=== PATIENT | male | born 2000 | race Caucasian/White ===

== ENCOUNTER 2020-09-16 15:04 | Inpatient (IN) | payer OTHER ==
[~2020-09-16] VITALS: Ht 188 cm; Wt 90.9 kg
[2020-09-16 15:43] LABS: HEMOGLOBIN 15.7 g/dl (13.5-17.5); MEAN CORPUSCULAR HEMOGLOBIN 31.7 pg (27.0-33.0); MEAN CORPUSCULAR HGB CONC 34.9 g/dl (32.0-36.5); MEAN CORPUSCULAR VOLUME 90.7 fl (80.0-96.0); PLATELET COUNT, AUTOMATED 229 10^3/uL (150-450); RED BLOOD COUNT 4.96 10^6/uL (4.30-6.10); WHITE BLOOD COUNT 7.8 10^3/uL (4.0-10.0)
[2020-09-16 16:17] LABS: ALBUMIN 4.5 GM/DL (3.2-5.2); ALT/SGPT 34 U/L (12-78); BILIRUBIN,DIRECT 0.1 MG/DL (0.0-0.2); BILIRUBIN,TOTAL 0.6 MG/DL (0.2-1.0); BLOOD UREA NITROGEN 12 MG/DL (7-18); CALCIUM LEVEL 9.7 MG/DL (8.5-10.1); CARBON DIOXIDE LEVEL 33 MEQ/L (21-32); CHLORIDE LEVEL 103 MEQ/L (98-107); CREATININE FOR GFR 1.03 MG/DL (0.70-1.30); GLUCOSE, FASTING 84 MG/DL (70-100); POTASSIUM SERUM 4.1 MEQ/L (3.5-5.1); SALICYLATE LEVEL < 1.7 MG/DL (5.0-30.0); SODIUM LEVEL 138 MEQ/L (136-145); THYROID STIMULATING HORMONE 0.989 uIU/ML (0.463-3.98); TOTAL PROTEIN 8.1 GM/DL (6.4-8.2)
[2020-09-16 16:18] LABS: ACETAMINOPHEN LEVEL < 2.0 UG/ML (10.0-30.0); ETHYL ALCOHOL (ETHANOL) < 0.003 % (0.000-0.010)
[2020-09-16 16:26] LABS: AMPHETAMINES LEVEL URINE NEGATIVE (NEGATIVE); BARBITURATES URINE NEGATIVE (NEGATIVE); BENZODIAZEPINES URINE NEGATIVE (NEGATIVE); CANNABINOIDS URINE NEGATIVE (NEGATIVE); COCAINE METABOLITE URINE NEGATIVE (NEGATIVE); METHADONE URINE NEGATIVE (NEGATIVE); OPIATES URINE NEGATIVE (NEGATIVE); PHENCYCLIDINE URINE NEGATIVE (NEGATIVE)
[2020-09-16] MEDS ORDERED: MOM 30ML SUSPENSION UDC PO PRN ×2 (19:00→20:00)
[2020-09-16] MEDS ORDERED: LORazepam 1 MG TAB PO PRN ×2 (19:00→20:00)
[2020-09-16] MEDS ORDERED: traZODone 50 MG TAB PO PRN ×2 (19:00→20:00)
[2020-09-16] MEDS ORDERED: MAALOX 30 ML SUSP *UDC PO PRN ×2 (19:00→20:00)
[2020-09-16] MEDS ORDERED: ACETAMINOPHEN TAB 650MG DOSE (2X325MG) PO PRN ×2 (19:00→20:00)
--- OUTSIDE RECORDS SUMMARY | 2020-09-16 19:35 | CCD ---
Author Author [facility] Organization [facility] Address Unknown Phone Unavailable Support Name Relationship Address Phone [facility] Next Of Kin [address] [place] [address] Unavailable Re-disclosure Warning The records that you are about to access may contain information from federally-assisted alcohol or drug abuse programs. If such information is present, then the following federally mandated warning applies: This information has been disclosed to you from records protected by federal confidentiality rules (42 CFR part 2). The federal rules prohibit you from making any further disclosure of this information unless further disclosure is expressly permitted by the written consent of the person to whom it pertains or as otherwise permitted by 42 CFR part 2. A general authorization for the release of medical or other information is NOT sufficient for this purpose. The Federal rules restrict any use of the information to criminally investigate or prosecute any alcohol or drug abuse patient.The records that you are about to access may contain highly sensitive health information, the redisclosure of which is protected by Article 27-F of the [facility] Public Health law. If you continue you may have access to information: Regarding HIV / AIDS; Provided by facilities licensed or operated by the [facility] Office of Mental Health; or Provided by the [facility] Office for People With Developmental Disabilities. If such information is present, then the following [facility] mandated warning applies: This information has been disclosed to you from confidential records which are protected by state law. State law prohibits you from making any further disclosure of this information without the specific written consent of the person to whom it pertains, or as otherwise permitted by law. Any unauthorized further disclosure in violation of state law may result in a fine or custodial sentence or both. A general authorization for the release of medical or other information is NOT sufficient authorization for further disc losure. Insurance Providers Payer name Policy type / Coverage type Policy ID Covered republican ID Covered republican's relationship to rivera Policy Rivera Plan Information [facility] [employer] [id number]
[2020-09-16] MEDS ORDERED: OLANZapine ORAL DISINTEGRATING TAB 5MG PO PRN (20:00)
[2020-09-16 20:42] LABS: RSV AMPLIFICATION NEGATIVE (NEGATIVE)
[2020-09-17 01:31] VITALS: BP 130/74
--- NOTE | 2020-09-17 12:35 | HPEPDOC ---
[facility] Medical History & Physical Date of Admission Sep 17, 2020 Date of Service: Sep 17, 2020 History and Physical CHIEF COMPLAINT: suicidal ideation HISTORY OF PRESENT ILLNESS: 19-year-old male with past medical history of depression and anxiety, brought to [facility] ER for suicidal ideation after he changed concerning text messages with a friend. He is active duty . Has several stressors including his relationship with his long-term girlfriend who recently admitted to infidelity. He misses his family and was not able to go home as his sleep was canceled. Hospitalist was consulted for medical comanagement. Patient denies chest pain, seizures of breath, nausea, vomiting, diarrhea. Thought to be: Positive on arrival to the ED. Asymptomatic. Saturating 98% on room air. He does not have any cough, subjective fevers or chills. PAST MEDICAL HISTORY: Depression SOCIAL HISTORY: Patient denies smoking Patient denies etoh use Patient denies illicit drug use FAMILY HISTORY: Reviewed with patient. No pertinent history ALLERGIES: Please see below. REVIEW OF SYSTEMS: 10 point review of systems completed, necessary findings listed in HPI HOME MEDICATIONS: Please see below. PHYSICAL EXAMINATION: VITAL SIGNS: please see below General: NAD, comfortable HEENT: PERRLA, EOMI, sclerae clear Neck: supple, normal ROM, no JVD Respiratory: lungs CTAB, no wheeze, no rales, no crackles CVS: RRR, normal S1, S2, no murmurs Abdo: soft, no masses, no hepatosplenomegaly, BS+, no rebound tenderness Extremities: no edema, pulses 2+ MSK: no joint deformities, normal ROM Neuro: no focal neuro deficits, moving all 4 extremities, CN2-12 intact. Strength 5/5 in all 4 extremities. No nystagmus. Psych: calm, cooperative, AAO x 3 LABORATORY DATA: See below. MICROBIOLOGY: Please see below. ASSESSMENT: 19-year-old male with a past medical history of depression, admitted to [facility] for suicidal ideation. 5. Difficulty 19 positive in the ER. Remains asymptomatic without cough, fevers, shortness of breath. Saturating 98% on room air. PLAN: Suicidal ideation/depression: Per psychiatry Covid-19 infection: asymptomatic. O2 saturation 98% on RA. VSS. No cough, sob, fevers. Monitor clinically. Supportive measures. Comvibent prn. Incentive spirometer. Thank you for involving me in the care of this patient. Please reconsult as needed. Vital Signs Vital Signs Date Time Temp Pulse Resp B/P (MAP) Pulse Ox O2 Delivery O2 Flow Rate FiO2 09/17/20 01:31 99.0 57 18 130/74 (92) Room Air 09/16/20 15:26 100 Laboratory Data Labs 24H Laboratory Tests 2 09/16/20 15:25: Nucleated Red Blood Cells % (auto) 0.0, Anion Gap 2L, Calcium Level 9.7, Total Bilirubin 0.6, Direct Bilirubin 0.1, Aspartate Amino Transf (AST/SGOT) 15, Alanine Aminotransferase (ALT/SGPT) 34, Alkaline Phosphatase 104, Total Protein 8.1, Albumin 4.5, Albumin/Globulin Ratio 1.3, Thyroid Stimulating Hormone (TSH) 0.989, Salicylates Level < 1.7L, Urine Opiates Screen NEGATIVE, Urine Methadone Screen NEGATIVE, Acetaminophen Level < 2.0L, Urine Barbiturates Screen NEGATIVE, Urine Phencyclidine Screen NEGATIVE, Urine Amphetamines Screen NEGATIVE, Urine Benzodiazepines Screen NEGATIVE, Urine Cocaine Metabolite Screen NEGATIVE, Urine Cannabinoids Screen NEGATIVE, Ethyl Alcohol Level < 0.003 09/16/20 19:39: Coronavirus (COVID-19)(PCR) POSITIVEA, Influenza Type A (RT-PCR) NEGATIVE, Influenza Type B (RT-PCR) NEGATIVE, Respiratory Syncytial Virus (PCR) NEGATIVE CBC/BMP Laboratory Tests 09/16/20 15:25 Home Medications Scheduled PRN Ipratropium/Albuterol Sulfate (Combivent Respimat 20-100 Mcg) 4 Gm Mist.inhal, 1 PUFF INH Q4HP PRN for SHORTNESS OF BREATH Trazodone HCl (Trazodone HCl) 50 Mg Tablet, 50 MG PO QHSP PRN for INSOMNIA Allergies Coded Allergies: No Known Allergies (Unverified , 09/16/20) A-FIB/CHADSVASC A-FIB History Current/History of A-Fib/PAF?: No Current PO Anticoag Therapy: No KALEE MUKHERJEE MD Sep 17, 2020 12:35
[2020-09-17] MEDS ORDERED: COMBIVENT RESPIMAT 100-20MCG INHALER 4GM INH PRN (12:45)
[2020-09-17 18:20] VITALS: BP 120/80
--- NOTE | 2020-09-17 18:26 | MHHPEPDOC ---
General Date Of Admission: Sep 16, 2020 Legal Status: 9.39 Chief Complaint "My dear friend misconstrued what I was saying... I'm not suicidal".--------The patient was seen via ZOOM because of the coronavirus pandemic History of Present Illness HISTORY OF THE PRESENT ILLNESS: Patient is a 19 -year-old , male, who, as per ED records: "Reason for Referral Pt was brought to [facility] for a MHE after pts g/f called police due to pt making suicidal statements via text message. Chief Complaint Pt reports that he joined the [employer] and just graduated basic in March. Pt. reports that [employer] is his first duty station and he arrived on April 04. 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 Pt reports that he is originally from [place]. Pt reports that is where his family is from. Pt reports that he grew up with his mom and step father and his two step siblings. Pt did not decipher gender. Pt reports that he only met his biological father a couple times in his lifetime and speaks of his biological f ather having 5 other children. Pt reports that he is very depressed because, his girlfriend of 3 years recently told him of her infidelity. Pt reports that her justification was it is very difficult to be alone. Pt also reports that he was looking forward to going home however his leave was cancelled. Pt reports that this made him very sad and in turn fueled his text earlier today. Pt reports that he was texting a friend from [place]. Pt reports that his friend was concerned about his mental health therefore contacted the police which prompted his visit to [facility]. Pt will not disclose what he wrote to his friend. Pt states "I never told anyone I wanted to kill myself, just that I couldn't do this anymore". Pt reports that "this" refers to not seeing my family and being away from them and my girlfriend cheating on him not SI. Pt denies SI/HI/AH/VH. Pt reports good appetite and poor sleep. Pt does not appear to be psychotic. Pt. does appear to be minimizing to avoid hospitalization." Psychiatric Review of Systems Depression (2 or more weeks): appetite changes (he says he is always eating) [place] (4 or more days of): talkativity, pressured, distractibility (very few times) Psychosis: denies PTSD: denies Anxiety: situational anxiety, other (he hates needles) Anxiety/ 6 months or more of: restlessness, keyed up Past Psychiatric History The patient was seen via ZOOM because of the coronavirus pandemic Previous Psychiatric Diagnosis: Denies Previous Psychiatric Admissions: Denies Suicide Attempts: Denies Psychiatric Follow-up: Denies Psychiatric medications: Denies. Past Medical History Medical Problems Denies Head Injury: No Seizures: No Hospitalizations: Yes Surgeries: Yes (appendectomy at age 11) Family Medical/Psychiatric HX Psychiatric Disorders: No Addiction: No Suicide Attemps/Completions: No Addiction History alcohol (occasionally, for celebrations) Social History The patient was seen via ZOOM because of the coronavirus pandemic Childhood: Grew up with mom and stepdad ( he considers him his father). he remembrs his bio father but he was not part of his life. Has step siblings, he is the oldest one. e gets along well with them. Abuse/Trauma: Denies Current Living Situation: [facility], [place] Education: finished Employment: [employer] Social Support: his family, friends at . Legal: Denies Marital: single, no children. Mental Status Examination General Appearance: well groomed, appears stated age, hospital scubs/clothing Build: average Demeanor: average Eye Contact: average Activity: average Behavior: cooperative Speech: clear, spontaneous, reg/rate,rhythm,volume Mood: euthymic Affect: full, appropriate Thought Process: logical/linear, intact Thought Content (Delusions): none reported, denies SI, HI, AVH Thought Content (Other): none reported Thought Content (Aggressive): none reported Perception (Hallucinations): none reported Perception (Other): none reported Cognition (Impairment of): none reported Cognition(Intelligence Est.): average Oriented: Awake, Alert, Oriented times three Insight: fair Judgment: Fair Psychosis: Denies Diagnoses 1. Adjustment disorder with mixed anxiety and depressed mood 2. specific phobia ( needles) A-FIB/CHADSVASC A-FIB History Current/History of A-Fib/PAF?: No Current PO Anticoag Therapy: No Age/Risk Factor Scoring CHADSVASC: CHADSVASC Response (Comments) Value Age Risk Factor Age < 65 years old 0 Gender Risk Factor Male 0 Hx of CHF Yes 1 Hx of HTN Yes 1 Hx of Stroke/TIA/or VTE Yes 2 Hx of Diabetes Yes 1 Hx of Vascular Disease Yes 1 Total 6 Treatment Treatment ordered: NONE Reason Anticoagulant not given: Not indicated/[id number] Assessment The patient was seen via ZOOM due to the coronavirus pandemic The patient is pleasant and cooperative. He is adamant about not being suicidal, he says his friend misinterpreted his statement when he said he couldn't keep going "like this". He says he has felt lonely because he is from [place] and he has had relationship problems because his GF of 3 years has been cheating on him. He says he is not suicidal and it feels as if he is minimizing his symptoms but his mood and affect didn't seem to be depressed at the time of the evaluation. I think he has been trying to adjust to his new job ( [employer]) and to living in a different place, without his family and now being betrayed by his GF. He says he has never been to therapy, has never taken any psychiatric medications and has never attempted suicide. Denies family psychiatric problems. Based on his responses, I won't start him on any medication at this time. Initial Treatment Plan 1. Patient was admitted on a [9.39] status. 2. Complete history was obtained. 3. With patients permission, family will be contacted and database will be expanded. 4. Patients medication regimen will be reviewed and changed accordingly. 5. Patient will be provided with protected environment. 6. Patient will be treated with individual, group, and milieu therapies. 7. Patient will receive supportive psych-education. 8. Discharge planning will commence immediately. 9. Outpatient follow-up treatment will be strongly recommended. 10. The initial treatment plan will focus initially on: * Depression. * Anxiety * Risk for suicide. ESTIMATED LENGTH OF STAY: 3-5 DAYS. TIME SPENT COUNSELING AND COORDINATING INITIAL CARE: 45 minutes. Vital Signs Vital Signs Date Time Temp Pulse Resp B/P (MAP) Pulse Ox O2 Delivery O2 Flow Rate FiO2 09/17/20 01:31 99.0 57 18 130/74 (92) Room Air 09/16/20 15:26 100 Laboratory Data 24H Labs Laboratory Tests 2 09/16/20 15:25: Nucleated Red Blood Cells % (auto) 0.0, Anion Gap 2L, Calcium Level 9.7, Total Bilirubin 0.6, Direct Bilirubin 0.1, Aspartate Amino Transf (AST/SGOT) 15, Alanine Aminotransferase (ALT/SGPT) 34, Alkaline Phosphatase 104, Total Protein 8.1, Albumin 4.5, Albumin/Globulin Ratio 1.3, Thyroid Stimulating Hormone (TSH) 0.989, Salicylates Level < 1.7L, Urine Opiates Screen NEGATIVE, Urine Methadone Screen NEGATIVE, Acetaminophen Level < 2.0L, Urine Barbiturates Screen NEGATIVE, Urine Phencyclidine Screen NEGATIVE, Urine Amphetamines Screen NEGATIVE, Urine Benzodiazepines Screen NEGATIVE, Urine Cocaine Metabolite Screen NEGATIVE, Urine Cannabinoids Screen NEGATIVE, Ethyl Alcohol Level < 0.003 09/16/20 19:39: Coronavirus (COVID-19)(PCR) POSITIVEA, Influenza Type A (RT-PCR) NEGATIVE, Influenza Type B (RT-PCR) NEGATIVE, Respiratory Syncytial Virus (PCR) NEGATIVE CBC/BMP Laboratory Tests 09/16/20 15:25 Medications No Active Prescriptions or Reported Meds Allergies Coded Allergies: No Known Allergies (Unverified , 09/16/20) KRISTEL WHELAN MD Sep 17, 2020 13:16
--- NOTE | 2020-09-18 12:58 | MHHPE ---
DATE OF EVALUATION: 09/18/2020 SUBJECTIVE: The patient tells me that he is doing fine. He continues to say that he did not have suicidal intent when he had voiced thoughts to his ex-girlfriend that she felt that he was suicidal. He has no complaints. MENTAL STATUS EXAMINATION: The patient is alert and oriented times three. Eye contact is fair. Psychomotor activity is normal. There is no formal thought disorder noted. He says his mood is okay. Affect is constricted but appropriate to mood. He is not psychotic. He is denying suicidal or homicidal ideations. Concentration is fair. Insight and judgment are fair. DIAGNOSIS: Adjustment disorder with mixed anxiety and depression. TREATMENT PLAN: At this point we will continue to monitor the patient for continued elevation and stabilization of his mood and continued resolution of suicidal ideation. SUL[place]NA
[2020-09-18 16:39] VITALS: BP 134/77
[2020-09-19 06:25] VITALS: BP 110/61
[2020-09-19 16:14] VITALS: BP 131/70
[2020-09-20 06:42] VITALS: BP 130/77
[2020-09-20] MEDS ORDERED: COMBAER6 INH (12:46)
[2020-09-20] MEDS ORDERED: TRAZ-252 PO (12:46)
--- NOTE | 2020-09-20 13:15 | MHIPN ---
[facility] INPATIENT PROGRESS NOTE DATE: 09/19/20 HISTORY OF PRESENT ILLNESS: The patient today continues to tell me that he is doing good. He says he slept well and he has no complaints. He continues to deny that he had any suicidal intent when apparently he had text some words to his girlfriend that he says were not really meant to be suicidal ideation. MENTAL STATUS EXAM: Patient is alert and oriented times 3. Eye contact is fairly good. He is verbally spontaneous. There is no formal thought disorder. His says his mood is good. Affect constricted, but appropriate to mood. He is not psychotic, suicidal or homicidal. Concentration and memory is good. Insight and judgment is fair. DIAGNOSIS: Adjustment disorder with mixed anxiety and depression. TREATMENT PLAN: We will continue to monitor the patient for continued resolution of suicidal ideations and continue elevation and stabilization of his mood.
--- NOTE | 2020-09-21 22:28 | MHDSPDOC ---
[facility] Discharge Summary Discharge Summary DATE OF ADMISSION: Sep 16, 2020 at 18:59 DATE OF DISCHARGE: 09/21/2020 DISCHARGE DIAGNOSES: 1. Adjustment disorder with mixed anxiety and depressed mood 2. specific phobia ( needles) REASON FOR ADMISSION: HISTORY OF THE PRESENT ILLNESS: Patient is a 19 -year-old , male, who, as per ED records: "Reason for Referral Pt was brought to [facility] for a MHE after pts g/f called police due to pt making suicidal statements via text message. 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 Pt. reports that [employer] is his first duty station and he arrived on April 04. 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 Pt reports that he is originally from [place]. Pt reports that is where his family is from. Pt reports that he grew up with his mom and step father and his two step siblings. Pt did not decipher gender. Pt reports that he only met his biological father a couple times in his lifetime and speaks of his biological father having 5 other children. Pt reports that he is very depressed because, his girlfriend of 3 years recently told him of her infidelity. Pt reports that her justification was it is very difficult to be alone. Pt also reports that he was looking forward to going home however his leave was cancelled. Pt reports that this made him very sad and in turn fueled his text earlier today. Pt reports that he was texting a friend from [place]. Pt reports that his friend was concerned about his mental health therefore contacted the police which prompted his visit to [facility]. Pt will not disclose what he wrote to his friend. Pt states "I never told anyone I wanted to kill myself, just that I couldn't do this anymore". Pt reports that "this" refers to not seeing my family and being away from them and my girlfriend cheating on him not SI. Pt denies SI/HI/AH/VH. Pt reports good appetite and poor sleep. Pt does not appear to be psychotic. Pt. does appear to be minimizing to avoid hospitalization." CONSULTANTS INVOLVED: None TREATMENT AND PROGRESS ON THE UNIT : He adamantly denied being suicidal, he said it was a misunderstanding because one of his friends thought he was suicidal when he said he didn't think he could keep going on "like this". He said he was lonely, he missed his family, Sherley and he knows his ex GF was cheating on him. All of that had compounded and he felt overwhelmed, sad and disappointed. He said he had felt angry too. He didn't want medications because he said all of this was due to those psychosocial stressors. At the time of his initial evaluation he was anxious and sad but he was not suicidal, not homicidal and not psychotic. HOSPITAL COURSE: Please read above. DISCHARGE ASSESSMENT: When he was evaluated on the day of his discharge, his moo d was euthymic, he was goal orientated, optimistic, he was thinking about visiting them during the summer. He adamantly denied being suicidal, he said he had being processing the breakup with his ex girlfriend and he thought it was better that they split up at this time and he didn't have to go through a painful marriage if they would have gotten . He was not delusional, he was not responding to internal stimuli, he didn't report TAV hallucinations. He was not in danger to self or others. MENTAL STATUS EXAMINATION ON DISCHARGE: General Appearance: well groomed, appears stated age, hospital scrubs/clothing Build: average Demeanor: average Eye Contact: average Activity: average Behavior: cooperative Speech: clear, spontaneous, reg/rate,rhythm,volume Mood: euthymic Affect: full, appropriate Thought Process: logical/linear, intact Thought Content (Delusions): none reported, denies SI, HI, AVH, He was not responding to internal stimuli Thought Content (Other): none reported Thought Content (Aggressive): none reported Perception (Hallucinations): none reported Perception (Other): none reported Cognition (Impairment of): none reported Cognition(Intelligence Est.): average Oriented: Awake, Alert, Oriented times three Insight: fair Judgment: Fair Psychosis: Denies Diagnoses 1. Adjustment disorder with mixed anxiety and depressed mood 2. specific phobia ( needles) MEDICATIONS ON DISCHARGE: Scheduled PRN Ipratropium/Albuterol Sulfate (Combivent Respimat 20-100 Mcg) 4 Gm Mist.inhal, 1 PUFF INH Q4HP PRN for SHORTNESS OF BREATH, #1 Trazodone HCl (Trazodone HCl) 50 Mg Tablet, 50 MG PO QHSP PRN for INSOMNIA, #7 PLAN/FOLLOWUP ARRANGEMENTS: [facility] The amount of time spent in the coordination of care for this patient was approximately 30 minutes. Vital Signs/I&Os Vital Signs Date Time Temp Pulse Resp B/P (MAP) Pulse Ox O2 Delivery O2 Flow Rate FiO2 09/20/20 06:42 97.4 100 18 130/77 (94) 98 Room Air Medications Scheduled PRN Ipratropium/Albuterol Sulfate (Combivent Respimat 20-100 Mcg) 4 Gm Mist.inhal, 1 PUFF INH Q4HP PRN for SHORTNESS OF BREATH, #1 Trazodone HCl (Trazodone HCl) 50 Mg Tablet, 50 MG PO QHSP PRN for INSOMNIA, #7 Allergies Coded Allergies: No Known Allergies (Unverified , 09/16/20) KRISTEL WHELAN MD Sep 20, 2020 12:50
== END 2020-09-20 15:13 | disposition home or self-care (01) | DRG 882 ==
LOC: M ED 15:04 → M ED INP 18:59 → M PSY 09-17 00:54
PROVIDERS: ADMIT Internal Medicine Nephrology; ATTEND Psychiatry & Neurology Psychiatry
DX: F43.23 Adjustment disorder with mixed anxiety and depressed mood (principal); R45.851 Suicidal ideations; F40.231 Fear of injections and transfusions; Z79.899 Other long term (current) drug therapy